=== PATIENT | male | born 2000 ===

== ENCOUNTER 2024-06-13 21:49 | Emergency (ER) | payer SELFPAY ==
[~2024-06-13] VITALS: Ht 167.6 cm; Wt 65.5 kg
[2024-06-13 21:49] VITALS: BP 130/68; TEMP 98.3; O2SAT 97
== END 2024-06-14 02:19 | disposition left against medical advice (07) ==
LOC: M ED 21:49
DX: Z53.21 Procedure and treatment not carried out due to patient leaving prior to being seen by health care provider (principal)